=== PATIENT | female | born 1990 | race Caucasian/White ===

== ENCOUNTER → 2019-03-11 | Outpatient (CLI) | payer MEDICAID ==
--- NOTE | 2019-03-11 16:14 | RADIOLOGY REPORT (SQ) ---
EXAM DESCRIPTION: U/S [id number] TRNABD 1GES W/ODOP COMPLETED DATE/TIME: 03/11/2019 3:44 pm REASON FOR STUDY: ENCTR FOR SUPERVISION OF NORMAL FIRST (Z34.01) Z34.01 ENCNTR FOR SUPRVS N OF NORMAL FIRST PREG, FIRST TRIMES COMPARISON: None. TECHNIQUE: Transabdominal static and realtime grayscale images acquired of the pelvis. Additional se lected spectral and color Doppler images recorded. All images stored on PACs. CG: Not available. CLINICAL DATES: ROSALINA: 10/25/2019. EGA 7 weeks 3 day LIMITATIONS: None. FINDINGS: FETUS: Single Living intrauterine . ULTRASOUND EGA: 7 weeks 1 day ULTRASOUND ROSALINA: 10/27/2019 EFW: Not applicable less than 20 weeks. CRL: 1.0 cm FHR: 144 beats per minute. SURVEY: No visualized anomalies. AMNIOTIC FLUID: Adequate amount. PLACENTA: Not yet developed due to early gestation. SUBCHORIONIC BLEED: Subchorionic bleed measures 2.0 cm x 2.7 cm SIZE OF BLEED: See above. UTERUS: No masses. No anomalies. CERVICAL LENGTH: 3.8 cm. Closed. RIGHT ADNEXA: The right ovary measures 2.1 x 2.9 x 1.9 cm. Normal ovary with normal vascular flow. No adnexal free fluid. No adnexal masses. LEFT ADNEXA: Not visualized. FREE FLUID: None. OTHER: No other significant finding. IMPRESSION: LIVING INTRAUTERINE . EGA: 7 weeks 1 day Subchorionic bleed as above. Trimester of : First - 0 to 13 weeks. TECHNICAL DOCUMENTATION: JOB ID: [id number]- All Rights Reserved rev Reading location - IP/workstation name: [email or web address]
== END ==
LOC: RAD 14:14
PROVIDERS: ATTEND Midwife
DX: Z34.01 Encounter for supervision of normal first pregnancy, first trimester (principal)
CPT/HCPCS: 76801

== ENCOUNTER 2019-10-25 11:05 | Inpatient (IN) | payer MEDICAID ==
[2019-10-27] MEDS ORDERED: HYDROMORPHONE HCL INJ/PF 2 MG/ML AMPULE ONE (01:40)
[2019-10-30] MEDS ORDERED: RINGERS SOLUTION,LACTATED 1,000 ML IV ONE (20:00)
[2019-10-30] MEDS ORDERED: DINOPROSTONE 10 MG VAGINAL INSERT.SR ONE (20:46)
[2019-10-30 20:47] LABS: ABSOLUTE LYMPHOCYTES (AUTO) 1.5 10^3/uL (0.5-4.7); ABSOLUTE MONOCYTES (AUTO) 0.8 10^3/uL (0.1-1.4); ABSOLUTE NEUT (AUTO) 8.2 10^3/uL (1.7-8.2); BASOPHILS % (AUTO) 0.2 % (0-2); EOSINOPHILS % (AUTO) 0.4 % (0-6); HEMATOCRIT 35.8 % (36.0-47.0); HEMOGLOBIN 12.3 g/dL (12.0-15.5); LYMPHOCYTES % (AUTO) 14.3 % (13-45); MEAN CORPUSCULAR HEMOGLOBIN 30.6 pg (27.0-33.4); MEAN CORPUSCULAR HGB CONC 34.4 g/dL (32.0-36.0); MEAN CORPUSCULAR VOLUME 89 fl (80-97); MONOCYTES % (AUTO) 7.1 % (3-13); PLATELET COUNT 225 10^3/uL (150-450); RED BLOOD COUNT 4.03 10^6/uL (3.72-5.28); RED CELL DISTRIBUTION WIDTH 15.7 % (11.5-14.0); TOTAL CELLS COUNTED % (AUTO) 100 %; WHITE BLOOD COUNT 10.6 10^3/uL (4.0-10.5)
[2019-10-30] MEDS: RINGERS SOLUTION,LACTATED 1,000 ML IV PRN (20:55)
[2019-10-30 21:07] LABS: APPEARANCE,URINE CLEAR; BILIRUBIN,URINE NEGATIVE (NEGATIVE); COLOR,URINE STRAW; GLUCOSE, URINE NEGATIVE (NEGATIVE); KETONES,URINE NEGATIVE (NEGATIVE); LEUKOCYTE ESTERASE,URINE NEGATIVE (NEGATIVE); NITRITE,URINE NEGATIVE (NEGATIVE); PROTEIN,URINE NEGATIVE (NEGATIVE); URINE SPECIFIC GRAVITY 1.004; UROBILINOGEN,URINE NEGATIVE mg/dL (<2.0)
[2019-10-30 21:19] LABS: URINE AMPHETAMINES SCREEN NEGATIVE; URINE BARBITURATES SCREEN NEGATIVE; URINE BENZODIAZEPINES SCREEN NEGATIVE; URINE COCAINE SCREEN NEGATIVE; URINE MARIJUANA (THC) SCREEN NEGATIVE; URINE METHADONE SCREEN NEGATIVE; URINE PHENCYCLIDINE SCREEN NEGATIVE
[2019-10-30] MEDS ORDERED: DINOPROSTONE 10 MG VAGINAL INSERT.SR PV PRN (21:45)
--- NOTE | 2019-10-30 21:45 | Admission Physical ---
Datetime Report Generated by CPN: 10/30/2019 21:45 CURRENT ADMISSION Chief Complaint: Scheduled Induction of Labor Indication for Induction: Postterm; Maternal Diabetes Admit Impression : Term, Intrauterine ; No Active Labor; Intact Membranes; Induction of Labor Admit Plan: Admit to Unit; Initiate Labor Induction Protocol ALLERGIES Medication Allergies: Yes Medication Allergies: Amoxicillin (rash) Latex: No Latex Allergies Food Allergies: N/A Environmental Allergies: N/a OBSTETRICAL HISTORY EDC: 10/25/2019 00:00 : 1 Para: 0 Gestational Diabetes: Yes Rh Sensitization: No Incompetent Cervix: No GREG: No Infertility: No ART Treatment: No Uterine Anomaly: No IUGR: No Hx Previous C/S: No Macrosomia: No Hx Loss/Stillborn: No PIH: No Hx : No Placenta Previa/Abruption: No Depression/PP Depression: No PTL/PROM: No Post Hemorrhage: No Current Procedures: Ultrasound; NST Obstetrical History Comments: G1 - Current SEE RECORDS Alcohol: No Marijuana : No Cocaine: No Other Illicit Drugs: No Cigarettes: Never Smoker. 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: No Heart Disease: No Hosp/Surgery: No Autoimmune Disorder: No Anesthetic Complications: No Kidney Disease: No Abnormal Pap Smear: No Neuro/Epilepsy: No Psychiatric Disorders: No Other Medical Diseases: No Hepatitis/Liver Disease: No Significant Family History: No Varicosities/Phlebitis: No Trauma/Violence : No Thyroid Dysfunction: No INFECTIOUS HISTORY Gonorrhea: No Genital Herpes: No Chlamydia: No Tuberculosis: No Syphilis: No Hepatitis: No HIV/AIDS Exposure: No Rash or Viral Illness: No HPV: No PHYSICAL EXAM General: Normal HEENT: Normal Neurologic: Normal Thyroid: Deferred Heart: Normal Lungs: Normal Breast: Deferred Back: Normal Abdomen: Normal Genitourinary Exam: Normal Extremities: Normal DTRs: Normal Pelvic Type: Adequate Vital Signs: Reviewed VAGINAL EXAM Dilatation: ft Effacement: th Station: -2 Contraction Comments: rare MEMBRANES Membranes: Intact FETUS A EGA: 40.5 Monitoring: External US FHR- Baseline: 155 Variability: Moderate 6-25bpm Accelerations: 15X15 Decelerations: None FHR Category: Category I Presentation: Vertex Admit Comment: 29yo at 40+5ega presents for IOL due to postEDD and A1GDM. GBS positive - Amoxicillin allergy. No sensitivities done on GBS culture therefore Vancomycin ordered. FOB with club foot - no other family members have had club foot. A1GDM. BPs elevated early but normal since then. Admit to labor and delivery - cervidil for IOL. Pitocin and FB after cervidil. Anticipate . 8#3oz on 10/29 PLANS FOR LABOR AND DELIVERY Labor and Delivery: Placenta Request Pain Management: None Feeding Preference: Breast Benefit of Breast Feed Discussed: Yes Circumcision: N/A INFORMED CONSENT Informed Consent Obtained: Vaginal Delivery; Induction of Labor; Risks, Benefits and Alternatives Discussed Signature: with User ID: [email or web address]
[2019-10-30] MEDS: VANCOMYCIN HCL 1,000 MG in DEXTROSE 5%-WATER 250 ML IV SCH (23:06)
[2019-10-31] MEDS ORDERED: ONDANSETRON HCL INJ/PF 4 MG/2 ML SDV ONE (03:52)
[2019-10-31] MEDS ORDERED: ONDANSETRON HCL INJ/PF 4 MG/2 ML SDV IV ONE ×2 (04:00→10:40)
[2019-10-31] MEDS ORDERED: HYDROMORPHONE HCL INJ/PF 2 MG/ML AMPULE IV ONE (04:00)
[2019-10-31] MEDS ORDERED: HYDROMORPHONE HCL INJ/PF 2 MG/ML AMPULE ONE (04:27)
[2019-10-31] MEDS: RINGERS SOLUTION,LACTATED 1,000 ML IV PRN (06:44)
[2019-10-31] MEDS ORDERED: OXYTOCIN/NORMAL SALINE 20 UNIT/1,000 ML RTUINJ IV PRN (07:38)
[2019-10-31] MEDS ORDERED: OXYTOCIN 10 UNIT/ML VIAL ONE (07:40)
[2019-10-31] MEDS ORDERED: LIDOCAINE 1% INJ-PF (10 MG/ML) 30 ML SDV ONE (07:40)
[2019-10-31] MEDS ORDERED: MISOPROSTOL 0.2 MG TABLET ONE (07:40)
[2019-10-31] MEDS ORDERED: OXYTOCIN/NORMAL SALINE 20 UNIT/1,000 ML RTUINJ ONE (07:40)
[2019-10-31] MEDS ORDERED: PHENYLEPHRINE HCL INJ/PF 10 MG/1 ML SDV ONE (10:13)
[2019-10-31] MEDS ORDERED: EPHEDRINE SULFATE INJ 50 MG/1 ML AMPULE ONE (10:14)
[2019-10-31] MEDS ORDERED: FENTANYL CITRATE INJ/PF 100 MCG/2 ML AMPUL ONE (10:14)
[2019-10-31] MEDS ORDERED: BUPIVACAINE HCL 0.25 % INJ/PF (2.5 MG/1 ML) 30 ML VIAL ONE (10:14)
[2019-10-31] MEDS ORDERED: FENTANYL/BUPIVACAINE/NS/PF 300 MCG/150 ML RTUINJ EPI ONE ×2 (10:14→23:32)
[2019-10-31] MEDS: VANCOMYCIN HCL 1,000 MG in DEXTROSE 5%-WATER 250 ML IV SCH ×2 (10:32→22:17)
[2019-10-31] MEDS ORDERED: ACETAMINOPHEN 325 MG TABLET PO ONE ×2 (17:45→22:30)
[2019-10-31] MEDS ORDERED: ACETAMINOPHEN 325 MG TABLET ONE ×2 (17:51→22:03)
[2019-10-31] MEDS ORDERED: LIDOCAINE 0.5% INJ-PF (5 MG/ML) 50 ML SDV ONE (19:48)
[2019-10-31] MEDS ORDERED: BUPIVACAINE HCL 0.5 % INJ/PF 30 ML SDV ONE (19:50)
[2019-10-31] MEDS ORDERED: VANCOMYCIN HCL INJ 1000 MG VIAL ONE (22:10)
[2019-11-01] MEDS ORDERED: METHYLERGONOVINE MALEATE INJ/PF 0.2 MG/1 ML AMPULE ONE (03:06)
[2019-11-01] MEDS ORDERED: GLYCERIN/WITCH HAZEL LEAF 1 EACH MED..WIPE TP PRN (03:11)
[2019-11-01] MEDS ORDERED: OXYTOCIN/NORMAL SALINE 20 UNIT/1,000 ML RTUINJ IV PRN (03:11)
[2019-11-01] MEDS ORDERED: PROMETHAZINE HCL INJ 25 MG/1 ML VIAL IV PRN (03:11)
[2019-11-01] MEDS ORDERED: ACETAMINOPHEN WITH CODEINE #3 TABLET PO PRN (03:11)
[2019-11-01] MEDS ORDERED: MEASLES,MUMPS&RUBELLA VACC/PF 0.5 ML VIAL SUBCUT PRN (03:11)
[2019-11-01] MEDS ORDERED: MAGNESIUM HYDROXIDE SUSP 30 ML UDCUP PO PRN (03:11)
[2019-11-01] MEDS ORDERED: PROMETHAZINE HCL 25 MG SUPP.RECT PR PRN (03:11)
[2019-11-01] MEDS ORDERED: DIPH/PERTUSS(ACELL)/TETANUS VAC/PF 0.5 ML SYR (>=10YO) IM PRN (03:11)
[2019-11-01] MEDS ORDERED: ZOLPIDEM TARTRATE 5 MG TABLET PO PRN (03:11)
[2019-11-01] MEDS ORDERED: PSEUDOEPHEDRINE HCL 30 MG TABLET PO PRN (03:11)
[2019-11-01] MEDS ORDERED: BENZOCAINE/MENTHOL AEROSOL SPRAY 56 ML TOP PRN (03:11)
[2019-11-01] MEDS ORDERED: DIBUCAINE 1% OINTMENT 28 GM TP PRN (03:11)
[2019-11-01] MEDS ORDERED: DIPHENHYDRAMINE HCL 25 MG CAPSULE PO PRN (03:11)
[2019-11-01] MEDS ORDERED: NA PHOS,M-B/NA PHOS,DI-BA (ADULT) 133 ML ENEMA PR PRN (03:11)
[2019-11-01] MEDS ORDERED: PROMETHAZINE HCL 25 MG TABLET PO PRN (03:11)
[2019-11-01] MEDS ORDERED: ACETAMINOPHEN 650 MG SUPP.RECT PR PRN (03:11)
[2019-11-01] MEDS ORDERED: BENZOCAINE/MENTHOL AEROSOL SPRAY 56 ML ONE (04:36)
--- NOTE | 2019-11-01 04:40 | Delivery Summary ---
Del Sum A-C Datetime Report Generated by CPN: 11/01/2019 04:40 DELIVERY PERSONNEL DELIVERY PERSONNEL: [id number] Delivery Doctor:: Corwin Mak MD Labor and Delivery Nurse:: Chapis Jackson RN Nursery Nurse:: Cherry Dennis RN MATERNAL INFORMATION Delivery Anesthesia: Epidural Medications After Delivery: Pitocin Bolus-Please Comment; Methergine 0.2mg IM; Cytotec 1000mcg Per Rectum/Vagina Estimated Blood Loss (ml): 100 Maternal Complications: Maternal Fever; Prolonged Second Stage > 2 Hrs Other Maternal Complications: GDM LABOR SUMMARY EDC: 10/25/2019 00:00 No. Babies in Womb: 1 Attempted: No Labor Anesthesia: Epidural LABOR INFORMATION Reason for Induction: Maternal Diabetes; Oligohydramnios Onset of Labor: 10/31/2019 11:27 Complete Dilatation: 10/31/2019 23:41 Cervical Ripening Agents: Cervidil Oxytocin: Induction Group B Beta Strep: positive Antibiotics # of Doses: 3 Antibiotics Time of Last Dose: 2216 Name of Antibiotic Given: vancomycin Steroids Given: None Reason Steroids Not Administered: Not Applicable MEMBRANES Membranes Rupture Method: Artificial Rupture of Membranes: 10/31/2019 11:27 Length of Rupture (hr): 15.05 Amniotic Fluid Color: Clear Amniotic Fluid Amount: Small Amniotic Fluid Odor: None STAGES OF LABOR Stage 1 hr: 12 Stage 1 min: 14 Stage 2 hr: 2 Stage 2 min: 49 Stage 3 hr: 0 Stage 3 min: 4 Total Time in Labor hr: 15 Total Time in Labor min: 7 VAGINAL DELIVERY Episiotomy: None Laceration #1: Vaginal Laceration Extension #1: First Degree (Annotations: Data stored by [facility] on behalf of user) Laceration Repair: Yes Laceration Repair Note: 2=0 vicryl Sponge Count Correct: Yes Sharps Count Correct: Yes CSECTION DELIVERY Primary Indication: N/A Secondary Indication: N/A CSection Incidence: N/A Labor: N/A Elective: N/A CSection Incision: N/A BABY A INFORMATION Delivery Date/Time: 11/01/2019 02:30 Method of Delivery: Vaginal Nurse Controlled Delivery: No Born in Route : No : N/A Forceps: N/A Vacuum Extraction: N/A Shoulder Dystocia : No PRESENTATION/POSITION BABY A Presentation: Cephalic Cephalic Presentation: Vertex Vertex Position: Left Occipital Anterior Breech Presentation: N/A PLACENTA INFORMATION BABY A Placenta Delivery Time : 11/01/2019 02:34 (Annotations: Data stored by [facility] on behalf of user) Placenta Method of Delivery: Spontaneous Placenta Status: Delivered SCORES BABY A Heart Rate 1 min: >100 bpm Resp Effort 1 min: Good Cry Reflex Irritability 1 min: Cough or Sneeze or Pulls Away Muscle Tone 1 min: Some Flexion of Extremities Color 1 min: Blue/Pale Resuscitation Effort 1 min: Tactile Stimulation SCORE 1 MIN: 7 Heart Rate 5 min: >100 bpm Resp Effort 5 min: Good Cry Reflex Irritability 5 min: Cough or Sneeze or Pulls Away Muscle Tone 5 min: Active Motion Color 5 min: Body [place], Extremities Blue Resuscitation Effort 5 min: Tactile Stimulation SCORE 5 MIN: 9 INFORMATION BABY A Gestational Age at Delivery: 41.0 Gestational Status: Late Term- 41- 41.6 Weeks Outcome : Liveborn Infant Condition : Stable Sex: Female IDENTIFICATION BABY A Verification Date/Time: 11/01/2019 04:10 ID Band Number: [id number] Mother's Name Verified: Yes Infant RN Verifying Infant: Darci, A, RN Additional Verifying Personnel: Jackson, CGabby RN WEIGHT/LENGTH BABY A Infant Birthweight (gm): 3440 Weight (lb): 7 Infant Weight (oz): 9 Infant Length (in): 20.25 Infant Length (cm): 51.44 CORD INFORMATION BABY A No. Cord Vessels: 3 Nuchal Cord : N/A Suction: Mouth ASSESSMENT BABY A Physical Findings at Delivery: Within Normal Limits Skin to Skin: Yes Skin to Skin Time (min): 60 Transferred To: Remains with Mother BABY B INFORMATION : N/A SIGNATURES Signature: with User ID: [email or web address] : I was personally available for consultation and serving as supervising physician for the MLP.
[2019-11-01] MEDS ORDERED: IBUPROFEN 800 MG TABLET ONE (05:43)
[2019-11-01] MEDS: IBUPROFEN 800 MG TABLET PO SCH ×3 (05:49→22:46)
--- NOTE | 2019-11-01 09:30 | PDOC PROGRESS REPORT ---
Subjective-OB Progress Note for:: 11/01/19 Subjective: Pt doing well, no complaints. She reports light bleeding, reg diet and voiding without difficulty. Physical Exam (OB) Vital Signs: Temp Pulse Resp BP Pulse Ox 97.7 F 89 16 128/86 H 100 11/01/19 08:39 11/01/19 08:39 11/01/19 08:39 11/01/19 08:39 11/01/19 08:39 Intake & Output 10/31/19 11/01/19 11/02/19 06:59 06:59 06:59 Intake Total 7789 245 1274 Balance 4751 914 0176 Weight 72.8 kg - Abdomen Fundal Description: Firm Fundal Height: u/u - u/2 Objective-Diagnostic Laboratory: 10/30/19 20:31 Assessment and Plan(PN) - Assessment and Plan (1) Vaginal delivery Is this a current diagnosis for this admission?: Yes (2) Carrier or suspected carrier of group B Streptococcus Is this a current diagnosis for this admission?: Yes (3) Gestational diabetes mellitus (GDM) in childbirth, diet controlled Is this a current diagnosis for this admission?: Yes - Time Spent with Patient Time with patient: Less than 15 minutes Medications reviewed and adjusted accordingly: Yes - Disposition Anticipated Discharge: Home Within: within 24 hours
[2019-11-01] MEDS: FERROUS SULFATE 325 MG TABLET PO SCH ×2 (09:31→17:09)
[2019-11-01] MEDS: PRENATAL VITAMIN W DHA CAPSULE PO SCH (09:31)
[2019-11-01] MEDS: DOCUSATE SODIUM 100 MG CAPSULE PO SCH ×2 (09:31→17:09)
[2019-11-01] MEDS: FAMOTIDINE 20 MG TABLET PO SCH ×2 (09:31→22:46)
[2019-11-01] MEDS: SENNOSIDES/DOCUSATE 8.6-50 MG 1 EACH TABLET PO SCH (09:31)
[2019-11-02] MEDS: IBUPROFEN 800 MG TABLET PO SCH ×3 (06:33→22:27)
[2019-11-02 07:23] LABS: HEMATOCRIT 29.2 % (36.0-47.0); MEAN CORPUSCULAR HGB CONC 33.6 g/dL (32.0-36.0); MEAN CORPUSCULAR VOLUME 89 fl (80-97); PLATELET COUNT 201 10^3/uL (150-450); RED BLOOD COUNT 3.27 10^6/uL (3.72-5.28); RED CELL DISTRIBUTION WIDTH 15.8 % (11.5-14.0)
[2019-11-02 07:24] LABS: HEMOGLOBIN 9.8 g/dL (12.0-15.5); WHITE BLOOD COUNT 22.2 10^3/uL (4.0-10.5)
[2019-11-02] MEDS: FERROUS SULFATE 325 MG TABLET PO SCH ×2 (09:30→20:24)
[2019-11-02] MEDS: DOCUSATE SODIUM 100 MG CAPSULE PO SCH ×2 (09:31→20:24)
[2019-11-02] MEDS: SENNOSIDES/DOCUSATE 8.6-50 MG 1 EACH TABLET PO SCH (09:31)
[2019-11-02] MEDS: PRENATAL VITAMIN W DHA CAPSULE PO SCH (09:31)
--- NOTE | 2019-11-02 10:56 | PDOC PROGRESS REPORT ---
Subjective-OB Progress Note for:: 11/02/19 Subjective: Pt would like to go home today, however, baby will not be discharged d/t + GBS. She reports light bleeding, reg diet and voiding without difficulty. Physical Exam (OB) Vital Signs: Temp Pulse Resp BP Pulse Ox 97.3 F 78 16 125/71 100 11/02/19 07:28 11/02/19 07:28 11/02/19 07:28 11/02/19 07:28 11/02/19 07:28 Intake & Output 11/01/19 11/02/19 11/03/19 06:59 06:59 06:59 Intake Total 250 2750 Balance 250 2750 - Lochia Lochia Amount: Small 10-25 ml Lochia Color: Rubra/Red - Abdomen Description: Soft Hernia Present: No Fundal Description: Firm Fundal Height: u/u - u/2 Objective-Diagnostic Laboratory: 11/02/19 06:49 11/02/19 06:49 WBC 22.2 H D RBC 3.27 L Hgb 9.8 L D Hct 29.2 L MCV 89 MCH 30.0 MCHC 33.6 RDW 15.8 H Plt Count 201 Assessment and Plan(PN) - Assessment and Plan (1) Vaginal delivery Is this a current diagnosis for this admission?: Yes (2) Carrier or suspected carrier of group B Streptococcus Is this a current diagnosis for this admission?: Yes (3) Gestational diabetes mellitus (GDM) in childbirth, diet controlled Is this a current diagnosis for this admission?: Yes - Time Spent with Patient Time with patient: Less than 15 minutes Medications reviewed and adjusted accordingly: Yes - Disposition Anticipated Discharge: Home Within: within 24 hours
[2019-11-02] MEDS: FAMOTIDINE 20 MG TABLET PO SCH ×2 (12:45→22:28)
[2019-11-03] MEDS: IBUPROFEN 800 MG TABLET PO SCH ×2 (05:22→13:41)
[2019-11-03] MEDS: DOCUSATE SODIUM 100 MG CAPSULE PO SCH (09:53)
[2019-11-03] MEDS: FERROUS SULFATE 325 MG TABLET PO SCH (09:53)
[2019-11-03] MEDS: PRENATAL VITAMIN W DHA CAPSULE PO SCH (09:53)
[2019-11-03] MEDS: SENNOSIDES/DOCUSATE 8.6-50 MG 1 EACH TABLET PO SCH (09:53)
[2019-11-03] MEDS: FAMOTIDINE 20 MG TABLET PO SCH (09:53)
[2019-11-03 11:33] VITALS: BP 126/78
--- NOTE | 2019-11-03 13:46 | PDOC DISCHARGE SUMMARY ---
Impression - Admit/DC Date/PCP Admission Date/Primary Care Provider: 10/30/19 19:45 TANYA KHAN MD Discharge Date: 11/03/19 - Discharge Diagnosis (1) Carrier or suspected carrier of group B Streptococcus Is this a current diagnosis for this admission?: Yes (2) Gestational diabetes mellitus (GDM) in childbirth, diet controlled Is this a current diagnosis for this admission?: Yes (3) Vaginal delivery Is this a current diagnosis for this admission?: Yes - Additional Information Discharge Diet: Regular Discharge Activity: Balance Activity w/Rest, Pelvic Rest Referrals: TANYA KHAN MD [Primary Care Provider] - Prescriptions: Ibuprofen [Motrin 800 mg Tablet] 800 mg PO Q8HP PRN #90 tablet PRN Reason: Home Medications: No122/Iron/Folic Acid [ Multi Tablet] 1 each PO DAILY 10/30/19 Ibuprofen [Motrin 800 mg Tablet] 800 mg PO Q8HP PRN #90 tablet 11/03/19 HPI Gestational Age: 40+5 Reason(s) for Admission: Induction of Labor Procedures: NST Intrapartum Procedure(s): Spontaneous Vaginal Delivery Results Laboratory Results: WBC 22.2 10^3/uL (4.0-10.5) H D 11/02/19 06:49 RBC 3.27 10^6/uL (3.72-5.28) L 11/02/19 06:49 Hgb 9.8 g/dL (12.0-15.5) L D 11/02/19 06:49 Hct 29.2 % (36.0-47.0) L 11/02/19 06:49 MCV 89 fl (80-97) 11/02/19 06:49 MCH 30.0 pg (27.0-33.4) 11/02/19 06:49 MCHC 33.6 g/dL (32.0-36.0) 11/02/19 06:49 RDW 15.8 % (11.5-14.0) H 11/02/19 06:49 Plt Count 201 10^3/uL (150-450) 11/02/19 06:49 Lymph % (Auto) 14.3 % (13-45) 10/30/19 20:31 [place] % (Auto) 7.1 % (3-13) 10/30/19 20:31 Eos % (Auto) 0.4 % (0-6) 10/30/19 20:31 Baso % (Auto) 0.2 % (0-2) 10/30/19 20:31 Absolute Neuts (auto) 8.2 10^3/uL (1.7-8.2) 10/30/19 20:31 Absolute Lymphs (auto) 1.5 10^3/uL (0.5-4.7) 10/30/19 20: Absolute Monos (auto) 0.8 10^3/uL (0.1-1.4) 10/30/19 20:31 Absolute Eos (auto) 0.0 10^3/uL (0.0-0.6) 10/30/19 20: Absolute Basos (auto) 0.0 10^3/uL (0.0-0.2) 10/30/19 20:31 Seg Neutrophils % 78.0 % (42-78) 10/30/19 20: Urine Color STRAW 10/30/19 20:10 Urine Appearance CLEAR 10/30/19 20:10 Urine pH 6.0 (5.0-9.0) 10/30/19 20:10 Ur Specific [place] 1.004 10/30/19 20:10 Urine Protein NEGATIVE mg/dL (NEGATIVE) 10/30/19 20:10 Urine Glucose (UA) NEGATIVE mg/dL (NEGATIVE) 10/30/19 20:10 Urine Ketones NEGATIVE mg/dL (NEGATIVE) 10/30/19 20:10 Urine Blood NEGATIVE (NEGATIVE) 10/30/19 20:10 Urine Nitrite NEGATIVE (NEGATIVE) 10/30/19 20:10 Urine Bilirubin NEGATIVE (NEGATIVE) 10/30/19 20:10 Urine Urobilinogen NEGATIVE mg/dL (<2.0) 10/30/19 20:10 Ur Leukocyte Esterase NEGATIVE (NEGATIVE) 10/30/19 20:10 Urine WBC (Auto) 1 /HPF 10/30/19 20:10 Urine RBC (Auto) 0 /HPF 10/30/19 20:10 Urine Bacteria (Auto) 2+ /HPF 10/30/19 20:10 Squamous Epi Cells Auto 1 /HPF 10/30/19 20:10 Urine Mucus (Auto) RARE /LPF 10/30/19 20:10 Urine Ascorbic Acid NEGATIVE (NEGATIVE) 02/20/20 20:10 Urine Opiates Screen NEGATIVE 10/30/19 20:10 Urine Methadone Screen NEGATIVE 10/30/19 20:10 Ur Barbiturates Screen NEGATIVE 10/30/19 20:10 Ur Phencyclidine Scrn NEGATIVE 10/30/19 20:10 Ur Amphetamines Screen NEGATIVE 10/30/19 20:10 U Benzodiazepines Scrn NEGATIVE 10/30/19 20:10 Urine Cocaine Screen NEGATIVE 10/30/19 20:10 U Marijuana (THC) Screen NEGATIVE 10/30/19 20:10 RPR NONREACTIVE (NONREACTIVE) 10/30/19 20:31 Blood Type O POSITIVE 10/30/19 20:31 Antibody Screen NEGATIVE 10/30/19 20:31 Plan Plan of Treatment: follow up in 4 weeks at [facility] for post check
== END 2019-11-03 14:23 | disposition home or self-care (01) | DRG 806 ==
LOC: LR 10-30 19:45 → 2S 11-01 08:30
PROVIDERS: ADMIT Student in an Organized Health Care Education/Training Program; ATTEND Obstetrics & Gynecology Gynecology
PROC: 10907ZC Drainage of Amniotic Fluid, Therapeutic from Products of Conception, Via Natural or Artificial Opening (ICD-10-PCS; 2019-10-31)
PROC: 10E0XZZ Delivery of Products of Conception, External Approach (ICD-10-PCS; principal; 2019-11-01)
PROC: 0HQ9XZZ Repair Perineum Skin, External Approach (ICD-10-PCS; 2019-11-01)
DX: O48.0 Post-term pregnancy (principal); O75.2 Pyrexia during labor, not elsewhere classified; O41.03X0 Oligohydramnios, third trimester, not applicable or unspecified; O24.420 Gestational diabetes mellitus in childbirth, diet controlled; O63.1 Prolonged second stage (of labor); O99.824 Streptococcus B carrier state complicating childbirth; O70.0 First degree perineal laceration during delivery; Z3A.41 41 weeks gestation of pregnancy; Z37.0 Single live birth
CPT/HCPCS: 36415; 80307; 81001; 85025; 85027; 86592; 86850; 86900; 86901; 99465; J1170; J2210; J2370; J2405; J2590; J3010; J3370; J3490; J7060